=== PATIENT | female | born 1930 | race Caucasian/White ===

== ENCOUNTER 2016-09-27 13:29 | Observation (INO) | payer MEDICARE, OTHER ==
[~2016-09-27] VITALS: Ht 152.4 cm; Wt 73.0 kg
[2016-09-27] VITALS (8 sets, daily range): BP systolic 131–228; BP diastolic 54–95; PULSE 71–99; RESP 16–20; TEMP 97.6–98.6; O2SAT 74–100
[~2016-09-27 13:29] MED LIST: GLIP5TAB8 PO; LEVO50TA4 PO; LUMI0.01 EACH EYE; OMEP20TA PO; TRIA37.5 PO
[2016-09-27] MEDS ORDERED: BIOT1SUB SL (14:08)
[2016-09-27] MEDS ORDERED: LISI40TA PO (14:08)
[2016-09-27] MEDS ORDERED: MECL12.574 PO (14:08)
[2016-09-27] MEDS ORDERED: METH750T PO (14:08)
[2016-09-27] MEDS ORDERED: TRIAMTERENE/HCTZ 37.5 MG/25 MG CAP PO ONE (14:15)
[2016-09-27] MEDS ORDERED: ONDANSETRON HCL 4 MG/2 ML VIAL IVP ONE (14:15)
[2016-09-27] MEDS ORDERED: SODIUM CHLORID 0.9% 500 ML INJ 500 ML IV ONE ×2 (14:15→16:15)
[2016-09-27] MEDS ORDERED: SODIUM CHLORIDE 0.9% FLUSH 5 ML FLUSH IVF PRN (14:15)
--- NOTE | 2016-09-27 14:23 | RADRPT ---
EXAM DATE/TIME: 09/27/2016 14:14 [facility] COMPARISON: CHEST SINGLE AP, September 05, 2015, 14:55. INDICATIONS : Evaluate for free air MEDICAL HISTORY : None. SURGICAL HISTORY : None. ENCOUNTER: Initial ACUITY: 1 day PAIN SCORE: 4/10 LOCATION: chest FINDINGS: A single view of the chest demonstrates the lungs to be symmetrically aerated without evidence of mas s, infiltrate or effusion. The cardiomediastinal contours are unremarkable. Osseous structures are intact. Clips are seen in the right axillary region. Free air is not seen. CONCLUSION: No acute disease. Jozef Gomez MD on September 27, 2016 at 14:20 Board Certified Radiologist. This report was verified electronically.
[2016-09-27 14:30] LABS: AUTOMATED NEUTROPHIL # 11.4 TH/MM3 (1.8-7.7); BASOPHIL # 0.1 TH/MM3 (0-0.2); BASOPHIL % 0.4 % (0.0-2.0); HEMATOCRIT 38.4 % (35.0-46.0); HEMO FLAGS DIFF FINAL; LYMPH % 4.2 % (9.0-44.0); LYMPHOCYTE # 0.5 TH/MM3 (1.0-4.8); MEAN CELL VOLUME 81.5 FL (80.0-100.0); MEAN CORPUSCULAR HEMOGLOBIN 25.3 PG (27.0-34.0); MEAN CORPUSCULAR HGB CONC 31.1 % (32.0-36.0); MONO % 7.4 % (0.0-8.0); PLATELET COUNT 276 TH/MM3 (150-450); RED BLOOD COUNT 4.72 MIL/MM3 (4.00-5.30); RED CELL DISTRIBUTION WIDTH 13.6 % (11.6-17.2); WHITE BLOOD COUNT 12.9 TH/MM3 (4.0-11.0)
[2016-09-27 14:39] LABS: APTT (PATIENT) 27.9 SEC (24.3-30.1); PROTHROMBIN TIME - PATIENT 11.6 SEC (9.8-11.6)
[2016-09-27 14:48] LABS: ANION GAP 13 MEQ/L (5-15); AST (GOT) 16 U/L (15-37); BICARBONATE 23.8 MEQ/L (21.0-32.0); BLOOD UREA NITROGEN 26 MG/DL (7-18); CHLORIDE 105 MEQ/L (98-107); GLOMERULAR FILTRATION RATE 33 ML/MIN (>89); POTASSIUM 3.4 MEQ/L (3.5-5.1); SODIUM (NA) 142 MEQ/L (136-145)
[2016-09-27 14:53] LABS: ALKALINE PHOSPHATASE 75 U/L (45-117); ALT (GPT) 17 U/L (10-53); TOTAL BILIRUBIN ADULT 0.4 MG/DL (0.2-1.0)
[2016-09-27] MEDS ORDERED: IODIXANOL 320 MG/ML 10 ML VIAL (for Rad CT) IV ONE (16:18)
--- NOTE | 2016-09-27 16:40 | RADRPT ---
EXAM DATE/TIME: 09/27/2016 16:15 [facility] COMPARISON: No previous studies available for comparison. INDICATIONS : Shortness of breath and lower chest pain. IV CONTRAST: 50 cc Visipaque (iodixanol) IV ; Cumulative dose for multiple exams. RADIATION DOSE: 28.01 CTDIvol (mGy) MEDICAL HISTORY : Carcinoma, breast. Hypertension. Diabetes mellitus type 2. SURGICAL HISTORY : Mastectomy, right. Appendectomy.Cholecystectomy. ENCOUNTER: Initial ACUITY: 1 day PAIN SCALE: 5/10 LOCATION: Bilateral lower chest TECHNIQUE: Volumetric scanning of the chest was performed using a pulmonary embolism protocol MIP images were re constructed. Using automated exposure control and adjustment of the mA and/or kV according to patien t size, radiation dose was kept as low as reasonably achievable to obtain optimal diagnostic quality images. FINDINGS: PULMONARY ARTERIES: No filling defects are seen in the pulmonary arteries through the segmental level. LUNGS: There is mild increased density in the lower lobes bilaterally being more prominent the left. PLEURAE: There is no pleural thickening or pleural effusion. MEDIASTINUM: There is good visualization of the great vessels of the middle mediastinum. No evidence of mediastin al or hilar adenopathy/mass. There is a mild hiatal hernia. Coronary artery calcifications are presen t. MUSCULOSKELETAL: Within normal limits for patient age. MISCELLANEOUS: The visualized upper abdominal organs demonstrate no acute abnormality. CONCLUSION: 1. No pulmonary embolus. 2. Mild atelectasis or consolidation at the lung bases being worse at the left. Jozef Gomez MD on September 27, 2016 at 16:34 Board Certified Radiologist. This report was verified electronically.
--- NOTE | 2016-09-27 16:44 | RADRPT ---
EXAM DATE/TIME: 09/27/2016 16:15 [facility] COMPARISON: CT PULMONARY ANGIOGRAM, September 27, 2016, 16:15. INDICATIONS : Nausea, vomiting and abdominal pain. IV CONTRAST: 50 cc Visipaque (iodixanol) IV ; Cumulative dose for multiple exams. ORAL CONTRAST: No oral contrast ingested. RADIATION DOSE: 8.78 CTDIvol (mGy) MEDICAL HISTORY : Carcinoma, breast. Hypertension. Diabetes mellitus type 2. SURGICAL HISTORY : Appendectomy. Cholecystectomy.Hysterectomy.Right mastectomy. ENCOUNTER: Initial ACUITY: 1 day PAIN SCALE: 5/10 LOCATION: Bilateral lower quadrant TECHNIQUE: Volumetric scanning of the abdomen and pelvis was performed. Using automated exposure control and ad justment of the mA and/or kV according to patient size, radiation dose was kept as low as reasonably achievable to obtain optimal diagnostic quality images. FINDINGS: LOWER LUNGS: There is mild atelectasis or consolidation at the bases. LIVER: Homogeneous density without lesion. There is no dilation of the biliary tree. Clips are seen from pr ior cholecystectomy. SPLEEN: Normal size without lesion. PANCREAS: Within normal limits. KIDNEYS: Normal in size and shape. There is no mass, stone or hydronephrosis. ADRENAL GLANDS: Within normal limits. VASCULAR: There is no aortic aneurysm. BOWEL/MESENTERY: The stomach, small bowel, and colon demonstrate no acute abnormality. There is no free intraperitone al air or fluid. There scattered colonic diverticula seen. There is calcification seen in the expecte d location of the appendix. A dilated appendix is not present. ABDOMINAL WALL: Within normal limits. RETROPERITONEUM: There is no lymphadenopathy. BLADDER: No wall thickening or mass. REPRODUCTIVE: The patient is status post hysterectomy. No pelvic mass is seen. INGUINAL: There is no lymphadenopathy or hernia. MUSCULOSKELETAL: There is degenerative change in the spine. CONCLUSION: 1. No acute abnormality seen. 2. Scattered colonic diverticula. Significant inflammatory change is not seen. Jozef Gomez MD on September 27, 2016 at 16:39 Board Certified Radiologist. This report was verified electronically.
[2016-09-27] MEDS ORDERED: cloNIDine HCL 0.2 MG TAB PO ONE (17:45)
[2016-09-27 18:08] LABS: BLOOD, URINE SMALL (NEG); COMMENT (UR) CULTURE INDICATED; CULTURE IF INDICATED CULTURE INDICATED; GLUCOSE,URINE NEG (NEG); HYALINE CAST, URINE 1 /lpf (RARE); KETONE, URINE 10 mg/dL (NEG); MUCUS URINE FEW /lpf (OCC); NITRITE,URINE POS (NEG); SQUAMOUS EPITHELIAL CELL URINE 1 /hpf (0-5); TRANSITIONAL EPI CELLS, URINE <1 /hpf; URINE COLOR YELLOW (YELLW/STRAW)
[2016-09-27] MEDS ORDERED: cefTRIAXone INJ 1,000 MG in SODIUM CHLORIDE 0.9% INJ 100 ML IV ONE (19:30)
--- NOTE | 2016-09-27 20:32 | PD ---
HPI Chief Complaint: GI Complaint Time Seen by Provider: 13:51 Travel History International Travel<30 days: No Contact w/Intl Traveler<30days: No Traveled to known affect area: No History of Present Illness HPI Patient is an 86-year-old female comes in complaining of nausea and vomiting for the past few days. She says that every time she eats or drinks she vomits everything back up. She says she has not been able to take her home medications for the past day due to vomiting. She says she has had an esophageal dilatation in the past, about 3 years ago and was told she might have to have one again. She denies any abdominal pain. She says she feels a pain when she tries to eat or drink in her chest. She denies any fever or chills. PFSH Past Medical History Arthritis: Yes (GENERALIZED) Heart Rhythm Problems: No Cancer: Yes (right breast) Cardiac Catheterization: No Cardiovascular Problems: Yes (htn ) High Cholesterol: No Congestive Heart Failure: No Diabetes: Yes Patient Takes Glucophage: No Diminished Hearing: No Endocrine: No Gastrointestinal Disorders: No GERD: Yes Genitourinary: No Hepatitis: No Hiatal Hernia: No Hypertension: Yes Immune Disorder: No Implanted Vascular Access Dvce: No Kidney Stones: No Musculoskeletal: Yes (arthritis) Neurologic: No Psychiatric: No Reproductive: No Respiratory: No Myocardial Infarction: No Radiation Therapy: Yes (RT. BREAST 1994) Thyroid Disease: Yes (HYPO) Tetanus Vaccination: > 5 Years Influenza Vaccination: No Menopausal: Yes : 7 Para: 7 Miscarriage: 0 : 0 Past Surgical History Abdominal Surgery: Yes (appendectomy cholecystectomy laparoscopic) Appendectomy: Yes Cardiac Surgery: No Cholecystectomy: Yes (07/22) Coronary Artery Bypass Graft: No Ear Surgery: No Eye Surgery: Yes (CATARACT EXTRACTION OU 2005) Genitourinary Surgery: Yes (hemorroidectomy) Gynecologic Surgery: Yes Hysterectomy: Yes Mastectomy: Yes (R SIDE- LYMPH NODES ONLY) Neurologic Surgery: No Oral Surgery: No Pacemaker: No Thoracic Surgery: No Other Surgery: Yes (RT. AXILLARY NODE DISSECTION 1994) Social History Alcohol Use: Yes (OCCAS.) Tobacco Use: No Substance Use: No Allergies-Medications (Allergen,Severity, Reaction): Coded Allergies: Alphagan (Verified Allergy, Unknown, 09/27/16) Latanoprost (Verified Allergy, Unknown, 09/27/16) Travatan (Verified Allergy, Unknown, 09/27/16) Reported Meds & Prescriptions Reported Meds & Active Scripts Active Reported Meclizine (Meclizine HCl) 12.5 Mg Tab 12.5 Mg PO HS PRN Biotin 5,000 Mcg Subl 5,000 Mcg SL Methocarbamol 750 Mg Tab 750 Mg PO BID PRN Lisinopril 40 Mg Tab 40 Mg PO BID Lumigan Opth Drops (Bimatoprost) 0.01% Soln 1 Drop EACH EYE HS Levothyroxine (Levothyroxine Sodium) 50 Mcg Tab 50 Mcg PO DAILY Omeprazole 20 Mg Tab 20 Mg PO DAILY Review of Systems Except as stated in HPI: all other systems reviewed are Neg General / Constitutional: No: Fever, Chills HENT: No: Headaches, Lightheadedness Respiratory: No: Cough, Shortness of Breath Gastrointestinal: Positive: Nausea, Vomiting, No: Abdominal Pain Musculoskeletal: No: Edema, Pain Skin: No Rash Neurologic: No: Weakness, Dizziness Physical Exam Narrative GENERAL: Awake and alert, in no acute distress. SKIN: Warm and dry. HEAD: Atraumatic. Normocephalic. EYES: Pupils equal and round. No scleral icterus. ENT: Mucous membranes pink and moist. NECK: Trachea midline. No JVD. CARDIOVASCULAR: Regular rate and rhythm. No murmur appreciated. RESPIRATORY: No accessory muscle use. Clear to auscultation. Breath sounds equal bilaterally. GASTROINTESTINAL: Abdomen soft, non-tender, nondistended. MUSCULOSKELETAL: No obvious deformities. No clubbing. No cyanosis. No edema. NEUROLOGICAL: Awake and alert. No obvious cranial nerve deficits. Motor grossly within normal limits. Normal speech. PSYCHIATRIC: Appropriate mood and affect; insight and judgment normal. Data Data Last Documented VS Vital Signs Date Time Temp Pulse Resp B/P Pulse Ox O2 Delivery O2 Flow Rate FiO2 09/27/16 19:34 98.5 71 16 131/61 97 Nasal Cannula 2 Orders Complete Blood Count With Diff (09/27/16 14:04) Comprehensive Metabolic Panel (09/27/16 14:04) Lipase (09/27/16 14:04) Prothrombin Time / Inr (Pt) (09/27/16 14:04) Act Partial Throm Time (Ptt) (09/27/16 14:04) Urinalysis - C+S If Indicated (09/27/16 14:04) Ua Includes Microscopic (09/27/16 14:04) Ct Abd/Pel W Iv Contrast(Rout) (09/27/16 14:04) Iv Access Insert/Monitor (09/27/16 14:04) Ecg Monitoring (09/27/16 14:04) Oximetry (09/27/16 14:04) Ondansetron Inj (Zofran Inj) (09/27/16 14:15) Sodium Chloride 0.9% Flush (Ns Flush) (09/27/16 14:15) Electrocardiogram (09/27/16 14:04) Chest, Single Ap (09/27/16 14:04) Troponin I (09/27/16 14:04) Sodium Chlorid 0.9% 500 Ml Inj (Ns 500 M (09/27/16 14:15) Thyroid Stimulating Hormone (09/27/16 14:06) Triamterene-Hctz 37.5-25 Mg (Dyazide 37. (09/27/16 14:15) Ct Pulmonary Angiogram (09/27/16 14:49) Sodium Chlorid 0.9% 500 Ml Inj (Ns 500 M (09/27/16 16:15) Iodixanol 320 Inj (Rad Ct) (Visipaque 32 (09/27/16 16:18) Clonidine (Catapres) (09/27/16 17:45) Urine Culture (09/27/16 17:54) Ceftriaxone Inj (Rocephin Inj) (09/27/16 19:30) Admit Order (Ed Use Only) (09/27/16 ) Labs Laboratory Tests Test 09/27/16 09/27/16 14:20 17:54 Prothrombin Time 11.6 SEC Prothromb Time International 1.0 RATIO Ratio Activated Partial 27.9 SEC Thromboplast Time Sodium Level 142 MEQ/L Potassium Level 3.4 MEQ/L Chloride Level 105 MEQ/L Carbon Dioxide Level 23.8 MEQ/L Anion Gap 13 MEQ/L Blood Urea Nitrogen 26 MG/DL Creatinine 1.51 MG/DL Estimat Glomerular Filtration 33 ML/MIN Rate Random Glucose 141 MG/DL Calcium Level 8.9 MG/DL Total Bilirubin 0.4 MG/DL Aspartate Amino Transf 16 U/L (AST/SGOT) Alanine Aminotransferase 17 U/L (ALT/SGPT) Alkaline Phosphatase 75 U/L Troponin I 0.02 NG/ML Total Protein 7.8 GM/DL Albumin 3.8 GM/DL Lipase 107 U/L Thyroid Stimulating Hormone 1.400 uIU/ML 3rd Gen White Blood Count 12.9 TH/MM3 Red Blood Count 4.72 MIL/MM3 Hemoglobin 12.0 GM/DL Hematocrit 38.4 % Mean Corpuscular Volume 81.5 FL Mean Corpuscular Hemoglobin 25.3 PG Mean Corpuscular Hemoglobin 31.1 % Concent Red Cell Distribution Width 13.6 % Platelet Count 276 TH/MM3 Mean Platelet Volume 9.1 FL Neutrophils (%) (Auto) 88.0 % Lymphocytes (%) (Auto) 4.2 % Monocytes (%) (Auto) 7.4 % Eosinophils (%) (Auto) 0.0 % Basophils (%) (Auto) 0.4 % Neutrophils # (Auto) 11.4 TH/MM3 Lymphocytes # (Auto) 0.5 TH/MM3 Monocytes # (Auto) 1.0 TH/MM3 Eosinophils # (Auto) 0.0 TH/MM3 Basophils # (Auto) 0.1 TH/MM3 CBC Comment DIFF FINAL Differential Comment Urine Color YELLOW Urine Turbidity HAZY Urine pH 6.0 Urine Specific [place] 1.032 Urine Protein 30 mg/dL Urine Glucose (UA) NEG mg/dL Urine Ketones 10 mg/dL Urine Occult Blood SMALL Urine Nitrite POS Urine Bilirubin NEG Urine Urobilinogen LESS THAN 2.0 MG/DL Urine Leukocyte Esterase LARGE Urine RBC 1 /hpf Urine WBC 69 /hpf Urine Squamous Epithelial 1 /hpf Cells Urine Transitional Epithelial <1 /hpf Cells Urine Hyaline Casts 1 /lpf Urine Mucus FEW /lpf Microscopic Urinalysis Comment CULTURE INDICATED MDM Medical Decision Making Medical Screen Exam Complete: Yes Emergency Medical Condition: Yes Medical Record Reviewed: Yes Interpretation(s) ECG shows normal sinus rhythm at 86, no ST elevation or depression, normal intervals. Differential Diagnosis Gastroenteritis versus gastritis versus visual stricture versus ACS versus UTI Narrative Course Patient is an 86-year-old female comes in complaining of nausea and vomiting for several days. Exam shows no acute abnormalities. IV established, labs sent. Labs show slight elevation in her white blood cell count 12.9. Urinalysis is positive for nitrites, CT abdomen and pelvis performed shows no acute abnormalities. Patient given Zofran as well as IV fluids. Given her blood pressure medication. Patient continued to vomit. Given a second dose of Zofran. It is likely patient needs esophageal dilatation again. Given Rocephin for UTI. Patient placed in observation for by mouth intolerance. Diagnosis Primary Impression: UTI (urinary tract infection) Qualified Code: N30.00 - Acute cystitis without hematuria Additional Impression: Nausea & vomiting Qualified Code: R11.2 - Intractable vomiting with nausea, unspecified vomiting type Admitting Information Admitting Physician Requests: Observation Marce Stevenson MD Sep 27, 2016 20:32
[2016-09-27] MEDS ORDERED: SODIUM CHLORIDE 0.9% FLUSH 5 ML FLUSH FLUSH PRN (21:30)
[2016-09-27] MEDS ORDERED: NALOXONE HCL 0.4 MG/ML AMP IV PRN (21:30)
[2016-09-27] MEDS ORDERED: ONDANSETRON HCL 4 MG/2 ML VIAL IVP PRN (21:30)
[2016-09-27] MEDS ORDERED: MECLIZINE HCL 25 MG TAB PO PRN (21:45)
[2016-09-27] MEDS ORDERED: METHOCARBAMOL 500 MG TAB PO PRN (21:45)
[2016-09-27] MEDS: PANTOPRAZOLE SODIUM 40 MG VIAL IV PUSH SCH (22:15)
[2016-09-27] MEDS: HEPARIN SODIUM - SQ 10,000 UNITS/ML VIAL SQ SCH (22:16)
[2016-09-27] MEDS: POTASSIUM CHLORIDE INJ 40 MEQ in SODIUM CHLOR 0.45% 1000 ML INJ 1,000 ML IV SCH (22:41)
[2016-09-28] VITALS (7 sets, daily range): BP systolic 114–189; BP diastolic 59–79; PULSE 61–93; RESP 17–20; TEMP 96.2–98.3; O2SAT 94–100
[2016-09-28] MEDS: LEVOTHYROXINE SODIUM 50 MCG TAB PO SCH (06:00)
[2016-09-28 06:57] LABS: AUTOMATED NEUTROPHIL # 4.9 TH/MM3 (1.8-7.7); BASOPHIL % 0.4 % (0.0-2.0); EOSINOPHIL # 0.2 TH/MM3 (0-0.4); HEMATOCRIT 26.9 % (35.0-46.0); HEMO FLAGS DIFF FINAL; LYMPH % 17.5 % (9.0-44.0); LYMPHOCYTE # 1.3 TH/MM3 (1.0-4.8); MEAN CELL VOLUME 81.5 FL (80.0-100.0); MEAN CORPUSCULAR HEMOGLOBIN 26.2 PG (27.0-34.0); MEAN CORPUSCULAR HGB CONC 32.1 % (32.0-36.0); MONO % 12.5 % (0.0-8.0); NEUT % 66.6 % (16.0-70.0); PLATELET COUNT 189 TH/MM3 (150-450); RED CELL DISTRIBUTION WIDTH 13.5 % (11.6-17.2); WHITE BLOOD COUNT 7.4 TH/MM3 (4.0-11.0)
[2016-09-28] MEDS: SODIUM CHLORIDE 0.9% FLUSH 5 ML FLUSH FLUSH SCH ×2 (09:48→20:28)
[2016-09-28] MEDS: PANTOPRAZOLE SODIUM 40 MG VIAL IV PUSH SCH ×2 (09:48→20:27)
[2016-09-28] MEDS: HEPARIN SODIUM - SQ 10,000 UNITS/ML VIAL SQ SCH ×2 (09:48→20:27)
[2016-09-28] MEDS: LISINOPRIL 20 MG TAB PO SCH ×2 (09:53→20:29)
--- NOTE | 2016-09-28 10:26 | PD.CONS ---
HPI History of Present Illness This is a 86 year old with past medical history of hypothyroidism, hypertension , diabetes, chronic hip pain/arthritis, history of breast cancer presents to the emergency room with complaints of nausea, vomiting and inability to keep anything down since last Saturday. She has been on clear liquids since Saturday and continue to have white emesis with phlegm, denies bilious or hematemesis. She denies abdomen pain, hematochezia or melena. She has history of esophageal stricture and had dilatation 3 years ago with Decarli. States she feels as though, there is a blockage in the throat and that results in dysphagia, this is on off for the past year. She has chronic severe GERD and normally, she takes Tums prior to eating. CT was negative for any acute findings. LFTs, lipase normal. There was a drop in hgb today 12.0---> 8.6. Currently patient just had breakfast, was able to keep it down so far. (Danelle Frausto) PFSH Past Medical History With thyroidism, hypertension, diabetes, chronic hip pain/osteoarthritis, history of breast cancer Past Surgical History Right breast lumpectomy. Cholecystectomy, Hemorrhoidectomy, appendectomy, hysterectomy (Danelle Frausto) Coded Allergies: Alphagan (Verified Allergy, Unknown, 09/27/16) Latanoprost (Verified Allergy, Unknown, 09/27/16) Travatan (Verified Allergy, Unknown, 09/27/16) Medications Current Medications Medications (Trade) Dose Ordered Sig/Toan Route Start Time Stop Time Status Last Admin (NS Flush) 2 ml UNSCH PRN FLUSH 09/27/16 21:30 (NS Flush) 2 ml BID FLUSH 09/28/16 09:00 09/28/16 09:48 (Zofran Inj) 4 mg Q6H PRN IVP 09/27/16 21:30 09/28/16 04:31 (Heparin Inj) 5,000 units Q12H SQ 09/27/16 22:00 09/28/16 09:48 Naloxone HCl 0.4 mg 0.4 mg UNSCH PRN IV 09/27/16 21:30 (KCl Inj/1/2 NS 1000 ml Inj) 1,020 ml @ 75 mls/hr [id number] IV 09/27/16 22:00 09/27/16 22:41 (Protonix Inj) 40 mg Q12H IV PUSH 09/27/16 22:00 09/28/16 09:48 (Synthroid) 50 mcg DAILY@0600 PO 09/28/16 06:00 09/28/16 06:00 (Antivert) 12.5 mg HS PRN PO 09/27/16 21:45 (Robaxin) 750 mg BID PRN PO 09/27/16 21:45 Patient Own Medication PT OWN MED: Bimatopr... HS EACH EYE 09/28/16 21:00 Future Hold (Prinivil) 40 mg BID PO 09/28/16 09:00 09/28/16 09:53 Family History Non contributory Social History No alcohol No smoking No illicit drug use (Danelle Frausto) GI Exam Vitals I&O Vital Signs Date Time Temp Pulse Resp B/P Pulse Ox O2 Delivery O2 Flow Rate FiO2 09/28/16 08:34 96.2 65 17 134/61 95 09/27/16 23:16 98.6 77 18 136/63 98 Nasal Cannula 2 09/27/16 19:34 98.5 71 16 131/61 97 Nasal Cannula 2 09/27/16 17:56 87 16 202/90 98 Nasal Cannula 2 09/27/16 15:52 82 20 190/92 98 Nasal Cannula 2 09/27/16 14:40 20 100 Nasal Cannula 2 09/27/16 14:40 20 74 Room Air 09/27/16 14:36 92 20 176/54 99 Room Air 09/27/16 13:57 93 20 209/89 98 09/27/16 13:32 97.6 99 20 228/95 99 Room Air Imaging Last Impressions CT Angiography 09/27/16 1449 Signed Impressions: Service Date/Time: September 16:15 - CONCLUSION: 1. No pulmonary embolus. 2. Mild atelectasis or consolidation at the lung bases being worse at the left. Jozef Gomez MD Chest X-Ray 09/27/16 1404 Signed Impressions: Service Date/Time: September 14:14 - CONCLUSION: No acute disease. Jozef Gomez MD Abdomen/Pelvis CT 09/27/16 1404 Signed Impressions: Service Date/Time: September 16:15 - CONCLUSION: 1. No acute abnormality seen. 2. Scattered colonic diverticula. Significant inflammatory change is not seen. Jozef Gomez MD Laboratory Test 09/27/16 09/27/16 09/28/16 14:20 17:54 06:23 White Blood Count 12.9 TH/MM3 7.4 TH/MM3 Red Blood Count 4.72 MIL/MM3 3.30 MIL/MM3 Hemoglobin 12.0 GM/DL 8.6 GM/DL Hematocrit 38.4 % 26.9 % Mean Corpuscular Volume 81.5 FL 81.5 FL Mean Corpuscular Hemoglobin 25.3 PG 26.2 PG Mean Corpuscular Hemoglobin 31.1 % 32.1 % Concent Red Cell Distribution Width 13.6 % 13.5 % Platelet Count 276 TH/MM3 189 TH/MM3 Mean Platelet Volume 9.1 FL 9.3 FL Neutrophils (%) (Auto) 88.0 % 66.6 % Lymphocytes (%) (Auto) 4.2 % 17.5 % Monocytes (%) (Auto) 7.4 % 12.5 % Eosinophils (%) (Auto) 0.0 % 3.0 % Basophils (%) (Auto) 0.4 % 0.4 % Neutrophils # (Auto) 11.4 TH/MM3 4.9 TH/MM3 Lymphocytes # (Auto) 0.5 TH/MM3 1.3 TH/MM3 Monocytes # (Auto) 1.0 TH/MM3 0.9 TH/MM3 Eosinophils # (Auto) 0.0 TH/MM3 0.2 TH/MM3 Basophils # (Auto) 0.1 TH/MM3 0.0 TH/MM3 CBC Comment DIFF FINAL DIFF FINAL Differential Comment Prothrombin Time 11.6 SEC Prothromb Time International 1.0 RATIO Ratio Activated Partial 27.9 SEC Thromboplast Time Sodium Level 142 MEQ/L Potassium Level 3.4 MEQ/L Chloride Level 105 MEQ/L Carbon Dioxide Level 23.8 MEQ/L Anion Gap 13 MEQ/L Blood Urea Nitrogen 26 MG/DL Creatinine 1.51 MG/DL Estimat Glomerular Filtration 33 ML/MIN Rate Random Glucose 141 MG/DL Calcium Level 8.9 MG/DL Total Bilirubin 0.4 MG/DL Aspartate Amino Transf 16 U/L (AST/SGOT) Alanine Aminotransferase 17 U/L (ALT/SGPT) Alkaline Phosphatase 75 U/L Troponin I 0.02 NG/ML Total Protein 7.8 GM/DL Albumin 3.8 GM/DL Lipase 107 U/L Thyroid Stimulating Hormone 1.400 uIU/ML 3rd Gen Urine Color YELLOW Urine Turbidity HAZY Urine pH 6.0 Urine Specific [place] 1.032 Urine Protein 30 mg/dL Urine Glucose (UA) NEG mg/dL Urine Ketones 10 mg/dL Urine Occult Blood SMALL Urine Nitrite POS Urine Bilirubin NEG Urine Urobilinogen LESS THAN 2.0 MG/DL Urine Leukocyte Esterase LARGE Urine RBC 1 /hpf Urine WBC 69 /hpf Urine Squamous Epithelial 1 /hpf Cells Urine Transitional Epithelial <1 /hpf Cells Urine Hyaline Casts 1 /lpf Urine Mucus FEW /lpf Microscopic Urinalysis Comment CULTURE INDICATED Date/Time Procedure Status Source Growth 09/27/16 17:54 Urine Culture Received Urine Clean Catch Pending Physical Examination HEENT: normocephalic; atraumatic; no jaundice. Throat is clear. NECK: Neck is supple, no JVD, no lymphadenopathy. CHEST: Chest is clear to auscultation and percussion. CARDIAC: Regular rate and rhythm with no murmur gallop or rubs. ABDOMEN: Soft, nondistended, nontender; no hepatosplenomegaly; bowel sounds are present in all four quadrants. EXTREMITIES: No clubbing, cyanosis, or edema. SKIN: Normal; no rash; no jaundice. HELP DESK REPRESENTATIVE: No focal deficits; alert and oriented times three. (Danelle Frausto) Assessment and Plan Plan - Dysphagia- nausea, vomiting and inability to keep anything down since last Saturday. She has been on clear liquids since Saturday and continue to have white emesis with phlegm, denies bilious or hematemesis. She denies abdomen pain, hematochezia or melena. She has history of esophageal stricture and had dilatation 3 years ago with Decarli. States she feels as though, there is a blockage in the throat and that results in dysphagia, this is on off for the past year. She has chronic severe GERD and normally, she takes Tums prior to eating. CT was negative for any acute findings. LFTs, lipase normal. There was a drop in hgb today 12.0--- > 8.6. Currently patient just had breakfast, was able to keep it down so far. - Anemia- There was a drop in hgb today 12.0---> 8.6. no signs of bleeding, could be dilutional effect. - Severe GERD/ indigestion- she takes Tums before meals - history of hypothyroidism, hypertension, diabetes, per attending Plan: - NPO - EGD/dilatation today - PPI - Monitor hh - Supportive care - Patient seen and examined by Dr. Donahue and myself and this note is written on his behalf. (Danelle Frausto) Physician Comments Seen and examined with HELP DESK REPRESENTATIVE, egd/dilation planned for today. NPO with protonix. Will follow, thank you (Vito Donahue MD) Danelle Frausto Sep 28, 2016 10:26 Vito Donahue MD Sep 28, 2016 12:35
[2016-09-28 11:11] LABS: BICARBONATE 25.4 MEQ/L (21.0-32.0); POTASSIUM 3.6 MEQ/L (3.5-5.1)
[2016-09-28] MEDS: POTASSIUM CHLORIDE INJ 40 MEQ in SODIUM CHLOR 0.45% 1000 ML INJ 1,000 ML IV SCH (11:36)
[2016-09-28] MEDS ORDERED: PROPOFOL 200 MG/20 ML AMP IV ONE (12:03)
--- NOTE | 2016-09-28 12:16 | GIPROC ---
[facility] [address] [facility]. [facility], [address] EGD PROCEDURE REPORT EXAM DATE: 09/28/2016 PATIENT NAME: Jackelyn Vera MR #: [id number] BIRTHDATE: 1930 ATTENDING: Vito Dnoahue MD ORDER #: [id number] COP WINDER: Denzel Sauceda and Mau Aguilera STATUS: inpatient INDICATIONS: The patient is a 86 yr old female here for an EGD due to dysphagia, dyspepsia, and iron deficiency anemia PROCEDURE PERFORMED: EGD w/ biopsy EGD w/ dilation of esophagus via guidewire MEDICATIONS: None and Per Anesthesia. TOPICAL ANESTHETIC: CONSENT: The patient understands the risks and benefits of the procedure and understands that these risks include, but are not limited to: sedation, allergic reaction, infection, perforation and/or bleeding. Alternative means of evaluation and treatment include, among others: physical exam, x-rays, and/or surgical intervention. The patient elects to proceed with this endoscopic procedure. medical equipment was checked for proper function. Hand hygiene and appropriate measures for infection prevention was taken. After the risks, benefits and alternatives of the procedure were thoroughly explained, Informed consent was verified, confirmed and timeout was successfully executed by the treatment team. The patient was anesthetized with topical anesthesia and the Pentax [id number] and [id number] endoscope was introduced through the mouth and advanced to the second portion of the duodenum. Retroflexed views revealed a hiatal hernia The gastroscope was then slowly withdrawn and removed. STOMACH: There was erythematous moderate gastritis in the gastric antrum. A biopsy was performed using cold forceps. Sample sent for histology. The stricture was dilated using a 15mm (45Fr) savary dilator over guidewire. Following this dilation, there was a medium sized mucosal rent. ESOPHAGUS: There was a short peptic and severe stricture in the distal esophagus. The stricture was traversable. ADVERSE EVENTS: There were no complications. IMPRESSIONS: 1. There was erythematous gastritis in the gastric antrum; biopsy was performed 2. There was a short stricture in the distal esophagus 3. Retroflexed views revealed a hiatal hernia RECOMMENDATIONS: 1. Await biopsy results. Biopsy results will not be ready for 7-10 days. If you don't hear from us in two weeks, call our office for biopsy results. 2. Anti-reflux regimen 3. Continue PPI 4. Avoid NSAIDS PATIENT CONDITION: stable DISPOSITION: Inpatient REPEAT EXAM: Return 6 months EGD with dilatation Vito Donahue MD eSigned: Vito Donahue MD 09/28/2016 12:16 PM cc: PATIENT NAME: Jackelyn Vera MR#: [id number]
[2016-09-28 13:26] LABS: HEMATOCRIT 34.2 % (35.0-46.0); REVIEW FLAG FINAL
[2016-09-28 13:51] LABS: FERRITIN 13 NG/ML (8-252); TRANSFERRIN IRON PROFILE 277 MG/DL (200-360)
--- NOTE | 2016-09-28 15:37 | EKG ---
Date Performed: 09/27/2016 Time Performed: 14:33:12 PTAGE: 86 years EKG: Sinus rhythm WITH OCCASIONAL SUPRAVENTRICULAR PREMATURE COMPLEXES VOLTAGE CRITERIA FOR LVH ABNORMAL ECG PREVIOUS TRACING : 09/09/2015 04.07 Compared to prior tracing no significant change DOCTOR: Erika Stuart Interpretating Date/Time 09/28/2016 15:35:40
--- NOTE | 2016-09-28 16:00 | HHI.PR ---
Objective Objective Results - Vital Signs Date Time Temp Pulse Resp B/P Pulse Ox O2 Delivery O2 Flow Rate FiO2 09/28/16 15:55 96.7 69 18 189/76 97 09/28/16 12:52 96.4 61 18 175/79 94 09/28/16 11:15 96.2 65 17 134/61 95 09/28/16 08:34 96.2 65 17 134/61 95 09/28/16 08:03 95 Nasal Cannula 3.00 09/27/16 23:16 98.6 77 18 136/63 98 Nasal Cannula 2 09/27/16 19:34 98.5 71 16 131/61 97 Nasal Cannula 2 09/27/16 17:56 87 16 202/90 98 Nasal Cannula 2 I/O 09/27/16 09/27/16 09/27/16 09/28/16 09/28/16 09/28/16 07:00 15:00 23:00 07:00 15:00 23:00 Intake Total 360 ml Balance 360 ml Intake Oral 360 ml # Voids 3 # Bowel Movements 0 Result Diagram: 09/28/16 1314 09/28/16 1035 Other Results Laboratory Tests Test 09/27/16 09/28/16 09/28/16 09/28/16 17:54 06:23 10:35 13:14 Urine Color YELLOW Urine Turbidity HAZY Urine pH 6.0 Urine Specific [place] 1.032 Urine Protein 30 Urine Glucose (UA) NEG Urine Ketones 10 Urine Occult Blood SMALL Urine Nitrite POS Urine Bilirubin NEG Urine Urobilinogen LESS THAN 2.0 Urine Leukocyte Esterase LARGE Urine RBC 1 Urine WBC 69 Urine Squamous Epithelial 1 Cells Urine Transitional Epithelial <1 Cells Urine Hyaline Casts 1 Urine Mucus FEW Microscopic Urinalysis Comment CULTURE INDICATED White Blood Count 7.4 Red Blood Count 3.30 Hemoglobin 8.6 10.9 Hematocrit 26.9 34.2 Mean Corpuscular Volume 81.5 Mean Corpuscular Hemoglobin 26.2 Mean Corpuscular Hemoglobin 32.1 Concent Red Cell Distribution Width 13.5 Platelet Count 189 Mean Platelet Volume 9.3 Neutrophils (%) (Auto) 66.6 Lymphocytes (%) (Auto) 17.5 Monocytes (%) (Auto) 12.5 Eosinophils (%) (Auto) 3.0 Basophils (%) (Auto) 0.4 Neutrophils # (Auto) 4.9 Lymphocytes # (Auto) 1.3 Monocytes # (Auto) 0.9 Eosinophils # (Auto) 0.2 Basophils # (Auto) 0.0 CBC Comment DIFF FINAL Differential Comment Sodium Level 140 Potassium Level 3.6 Chloride Level 107 Carbon Dioxide Level 25.4 Anion Gap 8 Blood Urea Nitrogen 27 Creatinine 1.36 Estimat Glomerular Filtration 37 Rate Random Glucose 138 Calcium Level 7.9 Iron Level 69 Total Iron Binding Capacity 388 Percent Iron Saturation 17.8 Ferritin 13 Vitamin B12 Level 613 Folate GREATER THAN 20.0 Reticulocyte Count 1.0 Absolute Reticulocyte Count 39.7 Date/Time Procedure Status Source Growth 09/27/16 17:54 Urine Culture - Preliminary Resulted Urine Clean Catch Gram Negative Michele Physical Exam Physical Exam pt is seen & Examined d/w PT d/w Hollie dysphagia dehydration UTI ch anemia see orders see H&P GI input appreciated will f/u Su Temple MD Sep 28, 2016 16:00
--- NOTE | 2016-09-28 18:21 | HHI.HP ---
[facility] Service [place] [facility] Primary Care Physician Toi Villanueva MD Admission Diagnosis PO intolerance, UTI Diagnoses: Travel History International Travel<30 Days: No Contact w/Intl Traveler <30 Da: No Traveled to Known Affected Are: No Past Family Social History Allergies: Coded Allergies: Alphagan (Verified Allergy, Unknown, 09/27/16) Latanoprost (Verified Allergy, Unknown, 09/27/16) Travatan (Verified Allergy, Unknown, 09/27/16) Physical Exam Vital Signs Vital Signs Date Time Temp Pulse Resp B/P Pulse Ox O2 Delivery O2 Flow Rate FiO2 09/28/16 15:55 96.7 69 18 189/76 97 09/28/16 12:52 96.4 61 18 175/79 94 09/28/16 12:24 72 16 173/71 94 09/28/16 12:19 73 16 144/78 95 09/28/16 12:14 97.9 65 16 156/69 94 09/28/16 11:15 96.2 65 17 134/61 95 09/28/16 08:34 96.2 65 17 134/61 95 09/28/16 08:03 95 Nasal Cannula 3.00 09/27/16 23:16 98.6 77 18 136/63 98 Nasal Cannula 2 09/27/16 19:34 98.5 71 16 131/61 97 Nasal Cannula 2 Laboratory Laboratory Tests Test 09/28/16 09/28/16 09/28/16 06:23 10:35 13:14 White Blood Count 7.4 Red Blood Count 3.30 Hemoglobin 8.6 10.9 Hematocrit 26.9 34.2 Mean Corpuscular Volume 81.5 Mean Corpuscular Hemoglobin 26.2 Mean Corpuscular Hemoglobin 32.1 Concent Red Cell Distribution Width 13.5 Platelet Count 189 Mean Platelet Volume 9.3 Neutrophils (%) (Auto) 66.6 Lymphocytes (%) (Auto) 17.5 Monocytes (%) (Auto) 12.5 Eosinophils (%) (Auto) 3.0 Basophils (%) (Auto) 0.4 Neutrophils # (Auto) 4.9 Lymphocytes # (Auto) 1.3 Monocytes # (Auto) 0.9 Eosinophils # (Auto) 0.2 Basophils # (Auto) 0.0 CBC Comment DIFF FINAL Differential Comment Sodium Level 140 Potassium Level 3.6 Chloride Level 107 Carbon Dioxide Level 25.4 Anion Gap 8 Blood Urea Nitrogen 27 Creatinine 1.36 Estimat Glomerular Filtration 37 Rate Random Glucose 138 Calcium Level 7.9 Iron Level 69 Total Iron Binding Capacity 388 Percent Iron Saturation 17.8 Ferritin 13 Vitamin B12 Level 613 Folate GREATER THAN 20.0 Reticulocyte Count 1.0 Absolute Reticulocyte Count 39.7 Date/Time Procedure Status Source Growth 09/27/16 17:54 Urine Culture - Preliminary Resulted Urine Clean Catch Gram Negative Michele Result Diagram: 09/28/16 1314 09/28/16 1035 Hollie Cano Sep 28, 2016 18:21
[2016-09-28] MEDS ORDERED: cefTRIAXone INJ 1,000 MG in SODIUM CHLORIDE 0.9% INJ 100 ML IV SCH (20:00)
[2016-09-28] MEDS ORDERED: BIMATOPROST OPTH EACH EYE SCH (21:00)
[2016-09-29 00:11] VITALS: BP 182/82; PULSE 83; RESP 20; TEMP 97.4; O2SAT 98
[2016-09-29 01:05] VITALS: BP 143/69
[2016-09-29 03:55] VITALS: BP 160/74; PULSE 70; RESP 20; TEMP 98; O2SAT 95
[2016-09-29] MEDS: LEVOTHYROXINE SODIUM 50 MCG TAB PO SCH (07:26)
--- NOTE | 2016-09-29 07:28 | HHI.PR ---
Subjective Subjective Remarks No n/v feels weak voiding okay no diarrhea no cp no sob no fever no acute changes overnight Review of Systems Constitutional Constitutional Remarks 12 point review of systems completed, negative except as noted above Vitals/Results Intake & Output 09/28/16 09/28/16 09/29/16 15:00 23:00 07:00 Intake Total 410 ml Balance 410 ml Intake Oral 360 ml IV Total 50 ml # Voids 3 1 # Bowel Movements 0 Vital Signs Vital Signs Date Time Temp Pulse Resp B/P Pulse Ox O2 Delivery O2 Flow Rate FiO2 09/29/16 03:55 98.0 70 20 160/74 95 09/29/16 01:05 143/69 09/29/16 00:11 97.4 83 20 182/82 98 09/28/16 19:35 97.5 71 20 174/77 95 09/28/16 19:23 98.3 93 20 114/59 100 09/28/16 15:55 96.7 69 18 189/76 97 09/28/16 12:52 96.4 61 18 175/79 94 09/28/16 12:24 72 16 173/71 94 09/28/16 12:19 73 16 144/78 95 09/28/16 12:14 97.9 65 16 156/69 94 09/28/16 11:15 96.2 65 17 134/61 95 09/28/16 08:34 96.2 65 17 134/61 95 09/28/16 08:03 95 Nasal Cannula 3.00 CBC/BMP: 09/28/16 1314 09/28/16 1035 Lab Results Laboratory Tests Test 09/28/16 09/28/16 10:35 13:14 Sodium Level 140 MEQ/L Potassium Level 3.6 MEQ/L Chloride Level 107 MEQ/L Carbon Dioxide Level 25.4 MEQ/L Anion Gap 8 MEQ/L Blood Urea Nitrogen 27 MG/DL Creatinine 1.36 MG/DL Estimat Glomerular Filtration 37 ML/MIN Rate Random Glucose 138 MG/DL Calcium Level 7.9 MG/DL Iron Level 69 MCG/DL Total Iron Binding Capacity 388 MCG/DL Percent Iron Saturation 17.8 % Ferritin 13 NG/ML Vitamin B12 Level 613 PG/ML Folate GREATER THAN 20.0 NG/ML Hemoglobin 10.9 GM/DL Hematocrit 34.2 % Reticulocyte Count 1.0 % Absolute Reticulocyte Count 39.7 MIL/L Physical Exam General General Appearance: Well Developed, Well Nourished, No Acute Distress, Comfortable Eyes Eye Exam: Extraocular Movement Intact Ears & Nose Ears & Nose Exam: Nasal Mucosa Don[place]ue Neck Neck Exam: Neck Supple, Trachea Midline Pulmonary Resp Exam: Clear Bilaterally Cardiology CV Exam: Regular, Good Perfusion Gastrointestinal/Abdomen GI Exam: Soft, Non-Tender, Bowel Sounds Present, Non-Distended Musculoskeletal MS Exam: Joints Intact Integumentary Skin Exam: Warm, Dry Extremeties Extremities Exam: No Edema, Pedal Pulses Palpable Neurologic Neuro Exam: Alert, Awake, Oriented, Speech Clear, Moving All Extremities, No Focal Deficits Psychiatric Psych Exam: Appropriate Responses VTE Prophylaxis VTE Prophylaxis Device: SCDs VTE Prophylaxis Meds: Heparin Assessment/Plan Problem List: (1) Weakness (2) UTI (urinary tract infection) (3) Nausea & vomiting (4) HTN (hypertension) (5) Hypothyroidism (6) ASTRID (acute kidney injury) (7) Dehydration (8) Anemia Assessment/Plan continue with IVF, dec. to KVO heart healthy diet antiemetics PRN appreciate GI input S/P EGD 09/28- erythematous gastritis in the gastric antrum;biopsy was performed /short stricture in the distal esophagus/Retroflexed views revealed a hiatal hernia recommend Anti-reflux regimen/ PPI/Avoid NSAIDs and return 6 months EGD with dilatation HH stable no active bleeding iron studies done, results noted renal fx improved monitor BMP continue with abx UC GNR PT eval,OOB with assist CM consult for DC planning, HHC/PT Poss dc this afternoon needs to f/u GI, PCP D/W RN D/W Dr. Temple D/W pt This patient was seen by myself and Dr. Temple, this note is written on his behalf. Problem Qualifiers (1) UTI (urinary tract infection): Qualified Code: N30.00 - Acute cystitis without hematuria (2) Nausea & vomiting: Qualified Code: R11.2 - Intractable vomiting with nausea, unspecified vomiting type (3) HTN (hypertension): Qualified Code: I10 - Essential hypertension (4) Hypothyroidism: Qualified Code: E03.9 - Hypothyroidism, unspecified type (5) Anemia: Qualified Code: D64.9 - Anemia, unspecified type Maia Anthony Sep 29, 2016 07:28
[2016-09-29 07:41] VITALS: BP 153/70; PULSE 69; RESP 16; TEMP 96.8; O2SAT 94
--- NOTE | 2016-09-29 07:59 | HHI.FF ---
Face to Face Verification Diagnosis: (1) Weakness (2) UTI (urinary tract infection) (3) Nausea & vomiting Physical Therapy Order: Evaluate and Treat Home Health Nursing Order: Medical education Nursing assessment with vital signs I have seen patient Jackelyn Vera on 09/29/16. My clinical findings support the need for the requested home health care services because: Deconditioned w/ increased weakness I certify that my clinical findings support that this patient is homebound because: Unsteady gait/balance Maia Anthony [facility] Sep 29, 2016 07:59
[2016-09-29] MEDS ORDERED: PROT40TA PO (08:09)
--- NOTE | 2016-09-29 08:10 | HHI.DCPOC ---
Discharge Care Plan Diagnosis: (1) UTI (urinary tract infection) (2) Nausea & vomiting (3) Dehydration (4) Anemia (5) Weakness Your Health Problems Are: Appetite Changes Difficulty to Swallow Goals to Promote Your Health * To prevent worsening of your condition and complications * To maintain your health at the optimal level Directions to Meet Your Goals Take your medications as prescribed Follow your dietary instruction Follow activity as directed Keep your appointments as scheduled Take your immunizations and boosters as scheduled If your symptoms worsen call your PCP, if no PCP go to Urgent Care Center or Emergency Room Smoking is Dangerous to Your Health. Avoid second hand smoke Call the 24-hour hour crisis hotline for domestic abuse at Maia Anthony Sep 29, 2016 08:10
[2016-09-29] MEDS ORDERED: PANTOPRAZOLE SOD 40 MG DELAYED RELEASE TAB PO SCH (09:00)
[2016-09-29] MEDS: LISINOPRIL 20 MG TAB PO SCH (09:54)
[2016-09-29] MEDS: POTASSIUM CHLORIDE INJ 40 MEQ in SODIUM CHLOR 0.45% 1000 ML INJ 1,000 ML IV SCH (09:55)
[2016-09-29] MEDS: SODIUM CHLORIDE 0.9% FLUSH 5 ML FLUSH FLUSH SCH (09:55)
[2016-09-29] MEDS: HEPARIN SODIUM - SQ 10,000 UNITS/ML VIAL SQ SCH (09:56)
[2016-09-29 11:58] VITALS: BP 187/64; PULSE 66; RESP 20; TEMP 96.5; O2SAT 93
[2016-09-29 12:12] LABS: HEMATOCRIT 33.5 % (35.0-46.0); MEAN CELL VOLUME 81.9 FL (80.0-100.0); MEAN CORPUSCULAR HEMOGLOBIN 26.5 PG (27.0-34.0); MEAN CORPUSCULAR HGB CONC 32.4 % (32.0-36.0); PLATELET COUNT 244 TH/MM3 (150-450); RED BLOOD COUNT 4.09 MIL/MM3 (4.00-5.30); REVIEW FLAG FINAL; WHITE BLOOD COUNT 7.2 TH/MM3 (4.0-11.0)
[2016-09-29] MEDS ORDERED: CEFT500T3 PO (12:27)
[2016-09-29] MEDS ORDERED: FERR325T PO (12:29)
[2016-09-29 12:41] LABS: BICARBONATE 22.1 MEQ/L (21.0-32.0); POTASSIUM 3.7 MEQ/L (3.5-5.1)
--- NOTE | 2016-09-29 13:45 | HHI.DS ---
Discharge Summary Admission Date Sep 27, 2016 at 20:25 Discharge Date: Sep 29, 2016 Admitting Diagnosis PO intolerance, UTI (1) Weakness (2) Nausea & vomiting (3) Dehydration (4) Anemia (5) Hypothyroidism (6) HTN (hypertension) (7) ASTRID (acute kidney injury) (8) UTI (urinary tract infection) Procedures S/P EGD 09/28- erythematous gastritis in the gastric antrum;biopsy was performed /short stricture in the distal esophagus/Retroflexed views revealed a hiatal hernia CBC/BMP: 09/29/16 1155 09/29/16 1155 Significant Findings Laboratory Tests Test 09/27/16 09/27/16 09/28/16 09/28/16 14:20 17:54 06:23 10:35 Potassium Level 3.4 MEQ/L (3.5-5.1) Blood Urea Nitrogen 26 MG/DL (7-18) 27 MG/DL (7-18) Creatinine 1.51 MG/DL 1.36 MG/DL (0.50-1.00) (0.50-1.00) Estimat Glomerular Filtration 33 ML/MIN (>89) 37 ML/MIN (>89) Rate Random Glucose 141 MG/DL 138 MG/DL (74-106) (74-106) White Blood Count 12.9 TH/MM3 (4.0-11.0) Mean Corpuscular Hemoglobin 25.3 PG 26.2 PG (27.0-34.0) (27.0-34.0) Mean Corpuscular Hemoglobin 31.1 % Concent (32.0-36.0) Neutrophils (%) (Auto) 88.0 % (16.0-70.0) Lymphocytes (%) (Auto) 4.2 % (9.0-44.0) Neutrophils # (Auto) 11.4 TH/MM3 (1.8-7.7) Lymphocytes # (Auto) 0.5 TH/MM3 (1.0-4.8) Monocytes # (Auto) 1.0 TH/MM3 (0-0.9) Urine Turbidity HAZY (CLEAR) Urine Protein 30 mg/dL (NEG-TRACE) Urine Ketones 10 mg/dL (NEG) Urine Occult Blood SMALL (NEG) Urine Nitrite POS (NEG) Urine Leukocyte Esterase LARGE (NEG) Urine WBC 69 /hpf (0-5) Urine Mucus FEW /lpf (OCC) Red Blood Count 3.30 MIL/MM3 (4.00-5.30) Hemoglobin 8.6 GM/DL (11.6-15.3) Hematocrit 26.9 % (35.0-46.0) Monocytes (%) (Auto) 12.5 % (0.0-8.0) Calcium Level 7.9 MG/DL (8.5-10.1) Percent Iron Saturation 17.8 % (20-50) Folate GREATER THAN 20.0 NG/ML (3.1-17.5) Test 09/28/16 09/29/16 13:14 11:55 Hemoglobin 10.9 GM/DL 10.8 GM/DL (11.6-15.3) (11.6-15.3) Hematocrit 34.2 % 33.5 % (35.0-46.0) (35.0-46.0) Mean Corpuscular Hemoglobin 26.5 PG (27.0-34.0) Blood Urea Nitrogen 20 MG/DL (7-18) Creatinine 1.20 MG/DL (0.50-1.00) Estimat Glomerular Filtration 42 ML/MIN (>89) Rate Random Glucose 138 MG/DL (74-106) Calcium Level 8.0 MG/DL (8.5-10.1) Imaging Last Impressions CT Angiography 09/27/16 1449 Signed Impressions: Service Date/Time: September 16:15 - CONCLUSION: 1. No pulmonary embolus. 2. Mild atelectasis or consolidation at the lung bases being worse at the left. Jozef Gomez MD Chest X-Ray 09/27/16 1400 Signed Impressions: Service Date/Time: September 14:14 - CONCLUSION: No acute disease. Joezf Gomez MD Abdomen/Pelvis CT 09/27/16 1404 Signed Impressions: Service Date/Time: September 16:15 - CONCLUSION: 1. No acute abnormality seen. 2. Scattered colonic diverticula. Significant inflammatory change is not seen. Jozef Gomez MD Hospital Course Patient is an 86-year-old female came in complaining of nausea and vomiting for the past few days. She says that every time she eats or drinks she vomits everything back up. She says she has not been able to take her home medications for the past day due to vomiting. She had an esophageal dilatation in the past, about 3 years ago and was told she might have to have one again. She denied any abdominal pain. She says she feels a pain when she tries to eat or drink in her chest. She denies any fever or chills. She was admitted for: (1) Weakness (2) UTI (urinary tract infection) (3) Nausea & vomiting (4) HTN (hypertension) (5) Hypothyroidism (6) ASTRID (acute kidney injury) (7) Dehydration (8) Anemia During the course of the hospitalization, the following took place: Pt. put on IVF, PPI GI consulted, EGD recommended. S/P EGD 09/28- erythematous gastritis in the gastric antrum;biopsy was performed /short stricture in the distal esophagus/Retroflexed views revealed a hiatal hernia recommend Anti-reflux regimen/ PPI/Avoid NSAIDs and return 6 months EGD with dilatation IVF were decreased diet advanced, tolerated well HH was stable no active bleeding iron studies done, results noted, put on PO iron renal fx improved, BMP monitored. Found positive for UTI E coli in urine put on antibiotics PT eval,OOB with assist CM consult for DC planning, HHC/PT Pt. stabilized, symptoms improved Discharged home with HHC/PT Instructed to follow up with PCP Diet-heart healthy Activity as tolerated Pt Condition on Discharge: Stable Discharge Disposition: Disch w/ Home Health Serv Discharge Instructions DIET: Follow Instructions for: Heart Healthy Diet Fluid Restrictions: none Activities you can perform: Weight Bearing as Lucas Other Activity Instructions: fall precautions Follow up Referrals: Gastroenterology - 2 Weeks with Vito Donahue MD PCP Follow-up New Medications: Cefuroxime (Ceftin) 500 Mg Tab 500 MG PO BID PRN Infection #10 Ref 0 TAB Ferrous Sulfate (Ferrous Sulfate) 325 Mg Tab 325 MG PO DAILY Nutritional Supplement #30 Ref 0 TAB Pantoprazole (Protonix) 40 Mg Tab 40 MG PO DAILY Reflux #30 Ref 1 TAB Continued Medications: Bimatoprost Opth Drops (Lumigan Opth Drops) 0.01% Soln 1 DROP EACH EYE HS Intraocular Pressure #1 Ref 0 BOTTLE Biotin (Biotin) 5,000 Mcg Subl 5000 MCG SL Nutritional Supplement Ref 0 BOTTLE Levothyroxine (Levothyroxine) 50 Mcg Tab 50 MCG PO DAILY Thyroid #30 Ref 0 TAB Lisinopril (Lisinopril) 40 Mg Tab 40 MG PO BID Blood Pressure Management Ref 0 TAB Meclizine (Meclizine) 12.5 Mg Tab 12.5 MG PO HS PRN VERTIGO Ref 0 TAB Methocarbamol (Methocarbamol) 750 Mg Tab 750 MG PO BID PRN PAIN SCALE 1 TO 10 Ref 0 TAB Discontinued Medications: Omeprazole (Omeprazole) 20 Mg Tab 20 MG PO DAILY #30 Ref 0 TAB Maia Anthony Sep 29, 2016 13:45 Maia Anthony Sep 29, 2016 13:45
--- NOTE | 2016-10-01 08:37 | MH ---
cc: JULIA WATKINS DATE OF ADMISSION: 09/27/2016 CHIEF COMPLAINT: Nausea and vomiting. TRAVEL IN THE LAST THIRTY DAYS: None. HISTORY OF PRESENT ILLNESS: This is a pleasant 86-year-old female who had been in her usual state of health up until the past few days when she started noticing acute onset of nausea and vomiting, decreased appetite and has not been able to keep anything down for the past three days. The patient states that she has not had her medicines today, attempted to take her medicines the day before admission and threw them right back up. The patient notes, according to the record and herself, that she had her esophagus dilated approximately three years ago and was told per her GI doctor that she may have had to have it done again. She denies any fever, no chills. No food in the past 48 hours. No cough. No fever, no chest pain. No shortness of breath. The patient does note some dysuria over the past few days. She does have occasional dizziness and headache. She denies any cramping or abdominal pain. Predominantly nausea and vomiting. PAST MEDICAL HISTORY: Her past medical history includes: 1. Arthritis. 2. Cancer of the right breast. 3. Hypertension. 4. Diabetes non-insulin dependent. 5. Gastroesophageal reflux disease (GERD) with stricture. PAST SURGICAL HISTORY AND PROCEDURES: 1. Radiation post her breast cancer. 2. Appendectomy. 3. Cholecystectomy. 4. Laparoscopic surgery. 5. Cataract extractions. 6. Hemorrhoidectomy. 7. Her mastectomy was right side lymph nodes only. Right axillary node dissection in 1994. ALLERGIES: 1. ALPHAGAN. 2. LATANOPROST. 3. TRAVATAN. REPORTED MEDICATIONS: 1. Meclizine. 2. Biotin. 3. Methocarbamol. 4. Lisinopril. 5. Lumigan Ophthalmic Drops. 6. Levothyroxine. 7. Omeprazole. SOCIAL HISTORY: The patient is currently walks with a cane, lives with her son-in-law who she states are choe but good caretakers. No tobacco. Occasional social alcohol during the holidays. No illicit drugs. REVIEW OF SYSTEMS: A twelve-point review of systems was done and positives noted are her nausea and vomiting, decreased appetite, no food consumption for the past two days. Some dysuria. Some dizziness. Mild headache. Other than that, other systems are negative or unremarkable. PHYSICAL EXAMINATION: VITAL SIGNS: Temperature is 96.2, pulse 65, respirations 17, blood pressure 134/61, 02 sat 95 on room air. GENERAL: White female looks to be her stated age resting in the bed, a fair historian. SKIN: Skin is pale, warm and dry. HEAD, EYES, EARS, NOSE, THROAT: Atraumatic, normocephalic. Pupils equal, round and reactive to light and accommodation. Mucous membranes are dry and pink. NECK: Neck is supple. HEART: Heart sounds S1-S2. Regular rate and rhythm. No murmurs, rubs or gallops appreciated. RESPIRATORY: Essentially clear anteriorly and posteriorly with no wheezes, rales or rhonchi. GI: Abdomen is soft, flat, nontender, nondistended. Hypoactive bowel sounds noted. MUSCULOSKELETAL: She moves her extremities with purpose. Generalized weakness but can overcome resistance. No edema. NEUROLOGICAL: Neurologically alert, awake, a fair historian. Speech is clear. PSYCHIATRIC: Appropriate mood and affect. LABORATORY DATA: 09/28/2016: WBC count 7.4, RBC 3.3, hemoglobin 8.6, hematocrit 26.9. Redrawn at 1314 this p.m.: hemoglobin 10.9, hematocrit 34.2, reticulocyte count 1, platelet count is 189,000. PT and INR 1. Chemistry: Sodium 140, potassium 3.6, chloride 107, carbon dioxide 25.4, anion gap 8, BUN 27, creatinine 1.36, glucose is 138, calcium is 7.9. Iron level is 69. TIBC 388. Ferritin level 13. Vitamin B12 613. Folate level greater than 20. Urine is yellow, hazy, pH of 6, specific gravity 1.032, protein 30, glucose negative, ketones 10, small amount of occult blood, large amount of leukocyte esterase, negative bilirubin, positive nitrites. Urine culture has been obtained for culture and sensitivity. IMAGING STUDIES: Chest x-ray to be no acute disease. Abdomen and pelvis CT: No acute abnormality, scattered colonic diverticula, significant inflammatory change is not seen. CT angiography: No pulmonary embolus, mild atelectasis and consolidation in the bases being worse on the left. ASSESSMENT: 1. Gastroenteritis probable with nausea and vomiting. 2. Urinary tract infection. 3. Gastroesophageal reflux disease (GERD) with possible stricture. 4. History of chronic kidney disease. 5. Acute kidney injury with acute on chronic renal insufficiency with dehydration. 6. Anemia. PLAN: 1. Admit for probable observation. 2. In the emergency room, the patient had Rocephin one time, labs were drawn on initial emergency room and re-drawn for followup. 3. Clonidine was given 0.2 milligrams p.o. once for hypertension. 4. One dose of Rocephin given. 5. Heparin for DVT prophylaxis. 6. Gentle hydration with IV fluids. 7. Clear liquid diet to begin with. 8. Vital signs q. 4 and PRN. 9. Will consult GI for his expert opinion. 10. Antivert PRN for any dizziness. 11. Pain management reconciled her medications. 12. Anemia workup. 13. Physical therapy evaluation and treat. 14. Will transition her to when able a heart-healthy diet. 15. EGD. We appreciate the GI consult. Looking towards procedures of EGD for stretching of her stricture. We will follow any other needs. Dictated by JADA Howell. MD CELESTINE Lam/JOSE /6:11 PM /8:37 AM
== END 2016-09-29 15:35 | disposition home or self-care (01) ==
LOC: NEPE 13:29 → NEDA 20:25 → NEPHCDU 23:54
PROVIDERS: ADMIT Specialist; ATTEND Specialist
DX: N30.00 Acute cystitis without hematuria (principal); N18.9 Chronic kidney disease, unspecified; I12.9 Hypertensive chronic kidney disease with stage 1 through stage 4 chronic kidney disease, or unspecified chronic kidney disease; E11.22 Type 2 diabetes mellitus with diabetic chronic kidney disease; K21.9 Gastro-esophageal reflux disease without esophagitis; E03.9 Hypothyroidism, unspecified; Z85.3 Personal history of malignant neoplasm of breast; R13.10 Dysphagia, unspecified; D64.9 Anemia, unspecified; K30 Functional dyspepsia; E86.0 Dehydration; N17.9 Acute kidney failure, unspecified; K44.9 Diaphragmatic hernia without obstruction or gangrene; K29.70 Gastritis, unspecified, without bleeding; K22.2 Esophageal obstruction; J98.11 Atelectasis; R07.9 Chest pain, unspecified; B96.20 Unspecified Escherichia coli [E. coli] as the cause of diseases classified elsewhere
CPT/HCPCS: 00740; 43239; 43248; 71010; 71275; 74177; 80048; 80053; 81001; 82607; 82728; 82746; 83540; 83550; 83690; 84443; 84484; 85014; 85018; 85025; 85027; 85044; 85610; 85730; 87077; 87086; 87186; 88305; 93005; 96361; 96365; 96375; 97161; 99285; C1769; C9113; G0378; G8987; G8988; J0696; J1644; J2405; J3480; J7040; Q9967; 88312